=== PATIENT | female | born 1950 | race Asian ===

== ENCOUNTER 2022-08-21 07:29 | Day surgery (SDC) | payer OTHER ==
[2022-08-17 14:21] VITALS: BMI 23.0
[2022-08-21] MEDS ORDERED: PROPOFOL 120 ML ONE (07:41)
[2022-08-21] MEDS ORDERED: LIDOCAINE HCL/PF 2% SDV 5ML VIAL ONE (07:41)
[2022-08-21 10:01] VITALS: TEMP 97.6
[2022-08-21 10:22] VITALS: BP 101/53; PULSE 81; RESP 18
== END 2022-08-21 10:23 | disposition home or self-care (01) ==
LOC: FASU-ENDO 07:29
PROVIDERS: ATTEND Internal Medicine Gastroenterology
PROC: 0DJD8ZZ Inspection of Lower Intestinal Tract, Via Natural or Artificial Opening Endoscopic (ICD-10-PCS; principal; 2022-08-21 09:37)
DX: Z12.11 Encounter for screening for malignant neoplasm of colon (principal); K57.30 Diverticulosis of large intestine without perforation or abscess without bleeding; Z86.010 Personal history of colon polyps; Z80.0 Family history of malignant neoplasm of digestive organs